=== PATIENT | male | born 1975 | race African-American/Black ===

== ENCOUNTER 2016-08-25 11:15 | Emergency (ER) | payer SELFPAY ==
[2016-08-25 11:21] VITALS: BP 128/69
--- NOTE | 2016-08-25 11:24 | ER Document Report ---
ED Medical Screen (RME) - General Stated Complaint: NAUSEA, BODY ACHES Notes: 40 yo male c/o feeling sick, body aches, nausea, feverish since yesterday. also c/o right knee pain, stiffness and swelling x 2 months. prolonged walking and standing at work. TRAVEL OUTSIDE OF THE [place] IN LAST 30 DAYS: No - Related Data Allergies/Adverse Reactions: No Known Allergies Allergy (Verified 09/16/14 16:42) Past Medical History Musculoskeltal Medical History: Reports Hx Musculoskeletal Trauma Traumatic Medical History: Reports: Hx Fractures Past Surgical History: Reports: Hx Oral Surgery, Hx Orthopedic Surgery - Immunizations Immunizations up to date: Yes Hx Diphtheria, Pertussis, Tetanus Vaccination: No Physical Exam - Vital signs Vitals: Temp Pulse Resp BP Pulse Ox 98.3 F 92 18 128/69 H 98 08/25/16 11:19 08/25/16 11:19 08/25/16 11:19 08/25/16 11:19 08/25/16 11:19 Course - Vital Signs Vital signs: Temp Pulse Resp BP Pulse Ox 98.3 F 92 18 128/69 H 98 08/25/16 11:19 08/25/16 11:19 08/25/16 11:19 08/25/16 11:19 08/25/16 11:19
--- NOTE | 2016-08-25 11:55 | ER Document Report ---
HPI - HPI Onset: Yesterday Onset/Duration: Sudden Pain Level: 4 Context: 4-year-old male developed a sore throat runny nose and mild cough yesterday. Woke up with severe myalgias and difficulty swallowing due to pain so he felt like he could not go to work. Temperature is 98.3 pulse ox is 98%. Associated Symptoms: None Exacerbated by: Other - Swallowing Relieved by: Denies Similar symptoms previously: No Recently seen / treated by doctor: No - ROS ROS below otherwise negative: Yes Systems Reviewed and Negative: Yes All other systems reviewed and negative - REPRODUCTIVE Reproductive: DENIES: : - DERM Skin Color: Normal Past Medical History - General Information source: Patient - Social History Smoking Status: Never Smoker Chew tobacco use (# tins/day): No Drug Abuse: None Lives with: Family Family History: CVA, Hypertension, Malignancy Patient has suicidal ideation: No Patient has homicidal ideation: No Musculoskeltal Medical History: Reports Hx Musculoskeletal Trauma Traumatic Medical History: Reports: Hx Fractures Past Surgical History: Reports: Hx Oral Surgery, Hx Orthopedic Surgery - Immunizations Immunizations up to date: Yes Hx Diphtheria, Pertussis, Tetanus Vaccination: No Vertical Provider Document - CONSTITUTIONAL Agree With Documented VS: Yes General Appearance: No Apparent Distress - INFECTION CONTROL TRAVEL OUTSIDE OF THE [place] IN LAST 30 DAYS: No - HEENT HEENT: Normocephalic, Pharyngeal Erythema. negative: Conjuctival Injection, Pharyngeal Exudate, Tympanic Membrane Red - NECK Neck: Supple. negative: Lymphadenopathy-Left, Lymphadenopathy-Right - RESPIRATORY Respiratory: Breath Sounds Normal, No Respiratory Distress O2 Sat by Pulse Oximetry: 98 - CARDIOVASCULAR Cardiovascular: Regular Rate, Regular Rhythm - GI/ABDOMEN Gastrointestinal: Abdomen Soft, Abdomen Non-Tender, No Organomegaly - BACK Back: Normal Inspection - MUSCULOSKELETAL/EXTREMETIES Musculoskeletal/Extremeties: MILTON GOMEZ - NEURO Level of Consciousness: Awake, Alert - DERM Integumentary: Warm, Dry, No Rash Course - Re-evaluation Re-evalutation: 08/25/16 11:55 Patient did not receive a flu shot. He wants nauseous influenza because he wants to take tamiflu. - Vital Signs Vital signs: Temp Pulse Resp BP Pulse Ox 98.3 F 92 18 128/69 H 98 08/25/16 11:19 08/25/16 11:19 08/25/16 11:19 08/25/16 11:19 08/25/16 11:19 Discharge - Discharge Clinical Impression: Sore throat, Myalgia Condition: Good Disposition: HOME, SELF-CARE Instructions: Acetaminophen, Use of [id number] Ibuprofen ([facility]), Sore Throat ([facility]), Myalagia (Muscle Pain) ([facility]) Additional Instructions: Return to the emergency room if worse the rapid strept and influenza test are negative plenty of fluids and rest Forms: Return to Work
== END 2016-08-25 13:08 | disposition home or self-care (01) ==
LOC: ER 11:15
DX: J02.9 Acute pharyngitis, unspecified (principal); M79.1 Myalgia; R05 Cough; M25.561 Pain in right knee; M25.562 Pain in left knee; G89.29 Other chronic pain
CPT/HCPCS: 87070; 87804; 87880; 99283

== ENCOUNTER 2016-10-11 10:32 | Emergency (ER) | payer SELFPAY ==
[2016-10-11 10:37] VITALS: BP 156/86
[2016-10-11] MEDS ORDERED: HYDROCODONE/ACETAMINOPHEN 5-325 MG TABLET PO ONE (11:14)
--- NOTE | 2016-10-11 11:18 | ER Document Report ---
HPI - HPI Patient complains to provider of: bilateral knee pain Onset: Other - 3 months Onset/Duration: Persistent Quality of pain: Achy Pain Level: 4 Context: Patient complains of bilateral knee joint pain for the past 3 months. Patient states that pain worsens with standing and going upstairs. Patient states that he does do a lot of standing at his job, which aggravates his knee joint pain. Patient denies any injury. Patient denies any fever. Patient has been taking Tylenol [id number] without relief of his pain symptoms. Associated Symptoms: Other Exacerbated by: Standing - Bilateral knee joint pain, Movement, Walking Relieved by: Denies Similar symptoms previously: No Recently seen / treated by doctor: No - ROS ROS below otherwise negative: Yes Systems Reviewed and Negative: Yes All other systems reviewed and negative - CONSTITUTIONAL Constitutional: DENIES: Fever, Chills - NEURO Neurology: DENIES: Weakness - CARDIOVASCULAR Cardiovascular: DENIES: Chest pain - REPRODUCTIVE Reproductive: DENIES: : - MUSCULOSKELETAL Musculoskeletal: REPORTS: Extremity pain - Bilateral knee. DENIES: Back Pain - DERM Skin Color: Normal Skin Problems: None Past Medical History - General Information source: Patient - Social History Smoking Status: Never Smoker Frequency of alcohol use: Occasional Drug Abuse: None Occupation: recycling Lives with: Family Family History: CVA, Hypertension, Malignancy Renal/ Medical History: Denies: Hx Peritoneal Dialysis Musculoskeltal Medical History: Reports Hx Musculoskeletal Trauma Traumatic Medical History: Reports: Hx Fractures Past Surgical History: Reports: Hx Oral Surgery, Hx Orthopedic Surgery - Immunizations Immunizations up to date: Yes Hx Diphtheria, Pertussis, Tetanus Vaccination: No Vertical Provider Document - CONSTITUTIONAL Agree With Documented VS: Yes Exam Limitations: No Limitations General Appearance: WD/WN, No Apparent Distress - INFECTION CONTROL TRAVEL OUTSIDE OF THE [place] IN LAST 30 DAYS: No - HEENT HEENT: Atraumatic, Normocephalic - NECK Neck: Normal Inspection - RESPIRATORY Respiratory: Breath Sounds Normal, No Respiratory Distress O2 Sat by Pulse Oximetry: 96 - CARDIOVASCULAR Cardiovascular: Regular Rate, Regular Rhythm, No Murmur Pulses: Normal: Posterior tibial - MUSCULOSKELETAL/EXTREMETIES Musculoskeletal/Extremeties: MAEW, FROM, Tender - Generalized bilateral knee joint tenderness, no edema or effusion. Normal skin color and temperature overlying bilateral knee joints. No laxity with varus or valgus maneuvers. - NEURO Level of Consciousness: Awake, Alert, Appropriate Motor/Sensory: No Motor Deficit - DERM Integumentary: Warm, Dry, No Rash Course - Vital Signs Vital signs: Temp Pulse Resp BP Pulse Ox 98.3 F 84 20 156/86 H 96 10/11/16 10:36 10/11/16 10:36 10/11/16 10:36 10/11/16 10:36 10/11/16 10:36 - Diagnostic Test Radiology reviewed: Image reviewed, Reports reviewed Discharge - Discharge Clinical Impression: Joint pain, knee Qualifiers: Laterality: bilateral Qualified Code(s): M25.561 - Pain in right knee; M25.562 - Pain in left knee Condition: Stable Disposition: HOME, SELF-CARE Instructions: Oral Narcotic Medication ([facility]), Arthralgia ([facility]), Anti- Inflammatory Medication ([facility]) Additional Instructions: Return immediately for any new or worsening symptoms Followup with your primary care provider, call tomorrow to make a followup appointment Follow up with orthopedic DrKimberly for further evaluation of bilateral knee joint pain Prescriptions: Hydrocodone/Acetaminophen [[place] 5-325 Tablet] 1 each PO Q4 PRN #15 tablet PRN Reason: Naproxen [Naprosyn 250 Nmg Tablet] 1 tab PO BID #14 tablet Forms: Return to Work, Elevated Blood Pressure Referrals: [facility] [Provider Group] - Follow up as needed [facility] [Provider Group] - Follow up in 3-5 days [facility] [Provider Group] - Follow up tomorrow
== END 2016-10-11 12:30 | disposition home or self-care (01) ==
LOC: ER 10:32
DX: M25.561 Pain in right knee (principal)
CPT/HCPCS: 99283

== ENCOUNTER → 2016-12-22 | Outpatient (CLI) | payer OTHER ==
[2016-12-23 09:21] LABS: ABSOLUTE EOSINOPHILS # (AUTO) 0.5 10^3/uL (0.0-0.6); ABSOLUTE LYMPHOCYTES (AUTO) 2.8 10^3/uL (0.5-4.7); ABSOLUTE MONOCYTES (AUTO) 0.7 10^3/uL (0.1-1.4); ABSOLUTE NEUT (AUTO) 3.1 10^3/uL (1.7-8.2); BASOPHILS % (AUTO) 0.4 % (0-2); EOSINOPHILS % (AUTO) 7.5 % (0-6); HEMOGLOBIN 15.8 g/dL (13.5-17.0); HGB HCT DIFFERENCE -0.6; LYMPHOCYTES % (AUTO) 39.2 % (13-45); MEAN CORPUSCULAR HEMOGLOBIN 29.2 pg (27.0-33.4); MEAN CORPUSCULAR VOLUME 89 fl (80-97); MONOCYTES % (AUTO) 9.9 % (3-13); RED BLOOD COUNT 5.43 10^6/uL (4.35-5.55); RED CELL DISTRIBUTION WIDTH 14.8 % (11.5-14.0); WHITE BLOOD COUNT 7.3 10^3/uL (4.0-10.5)
[2016-12-23 11:23] LABS: BLOOD UREA NITROGEN 13 mg/dL (7-20); CALCIUM 9.6 mg/dL (8.4-10.2); CREATININE RESULT 1.06 mg/dL (0.52-1.25); GLUCOSE 90 mg/dL (75-110); POTASSIUM 4.4 mmol/L (3.6-5.0)
[2016-12-23 11:24] LABS: ALANINE AMINOTRANSFERASE 36 U/L (21-72); ALKALINE PHOSPHATASE 73 U/L (38-126); ANION GAP 12 (5-19); ASPARTATE AMINO TRANSFERASE 27 U/L (17-59); BILIRUBIN,DIRECT 0.3 mg/dL (0.0-0.4); BILIRUBIN,TOTAL 0.6 mg/dL (0.2-1.3); CARBON DIOXIDE 27 mmol/L (22-30); CHLORIDE 103 mmol/L (98-107); SODIUM 141.9 mmol/L (137-145)
[2016-12-23 11:25] LABS: CHOLESTEROL 213.04 mg/dL (0-200); TOTAL PROTEIN 7.3 g/dL (6.3-8.2); TRIGLYCERIDES 95 mg/dL (<150)
[2016-12-23 11:27] LABS: DIRECT LDL 137 mg/dL (<100); Direct HDL 37 mg/dL (>40)
== END ==
LOC: LAB 12:25 → EDSTATUS 20:00
DX: Z13.9 Encounter for screening, unspecified (principal)
CPT/HCPCS: 36415; 80053; 80061; 83036; 84153; 84443; 85025

== ENCOUNTER 2018-08-31 15:49 | Emergency (ER) | payer SELFPAY ==
[2018-08-31 16:05] VITALS: BP 144/76
--- NOTE | 2018-08-31 16:54 | ER Document Report ---
HPI - HPI Time Seen by Provider: 08/31/18 16:38 Pain Level: 4 Notes: Patient is a 42-year-old male who presents with chief complaint of bilateral knee pain over the last 7 months. Patient reports the pain has been worsening. He reports the pain is present every day and worsens through the day. He denies any trauma to the area. - REPRODUCTIVE Reproductive: DENIES: : - MUSCULOSKELETAL Musculoskeletal: REPORTS: Extremity pain - both knees Past Medical History - General Information source: Patient - Social History Smoking Status: Never Smoker Chew tobacco use (# tins/day): No Frequency of alcohol use: None Drug Abuse: None Family History: CVA, Hypertension, Malignancy Patient has suicidal ideation: No Patient has homicidal ideation: No - Past Medical History Cardiac Medical History: Reports: Hx Hypertension Renal/ Medical History: Denies: Hx Peritoneal Dialysis Musculoskeletal Medical History: Reports Hx Musculoskeletal Trauma Traumatic Medical History: Reports: Hx Fractures Past Surgical History: Reports: Hx Oral Surgery, Hx Orthopedic Surgery - Immunizations Immunizations up to date: Yes Hx Diphtheria, Pertussis, Tetanus Vaccination: No Vertical Provider Document - CONSTITUTIONAL Notes: PHYSICAL EXAMINATION: GENERAL: Well-appearing, well-nourished and in no acute distress. HEAD: Atraumatic, normocephalic. EYES: Pupils equal round extraocular movements intact, conjunctiva are normal. ENT: Nares patent NECK: Normal range of motion LUNGS: No respiratory distress Musculoskeletal: Normal range of motion, bilateral knees without any swelling, erythema or ecchymosis. NEUROLOGICAL: Normal speech, normal gait. PSYCH: Normal mood, normal affect. SKIN: Warm, Dry, normal turgor, no rashes or lesions noted. - INFECTION CONTROL TRAVEL OUTSIDE OF THE [place] IN LAST 30 DAYS: No Course - Re-evaluation Re-evalutation: No imaging indicated as patient has had pain for greater than 7 months with no injury. Bilateral knees are tender to palpation however there is no erythema, ecchymosis or edema. Likely arthritic changes as patient states he has been dealing with this for some time. Patient encouraged to follow-up with primary care. - Vital Signs Vital signs: Temp Pulse Resp BP Pulse Ox 98.5 F 72 16 144/76 H 97 08/31/18 16:03 08/31/18 16:03 08/31/18 16:03 08/31/18 16:03 08/31/18 16:03 Discharge - Discharge Clinical Impression: Chronic knee pain Qualifiers: Laterality: bilateral Qualified Code(s): M25.561 - Pain in right knee Condition: Stable Disposition: HOME, SELF-CARE Additional Instructions: The pain you are experiencing in your knees is most likely related to arthritis. Please try the medication that I have prescribed. Call and make an appointment with your primary care provider or [facility]. They may want to consider either physical therapy or an MRI. Prescriptions: Diclofenac Sodium 75 mg PO BID #60 tablet.dr Forms: Return to Work [facility]: [facility] [NO [facility]AL MD] - Follow up as needed
== END 2018-08-31 17:02 | disposition home or self-care (01) ==
LOC: ER 15:49
DX: G89.29 Other chronic pain (principal); M25.561 Pain in right knee; M25.562 Pain in left knee; I10 Essential (primary) hypertension
CPT/HCPCS: 99283